=== PATIENT | male | born 2005 | race African-American/Black ===

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

== ENCOUNTER 2025-07-23 20:57 | Emergency (ER) | payer MEDICAID ==
[~2025-07-23] VITALS: Ht 175.3 cm; Wt 61.4 kg
[~2025-07-23 20:57] MED LIST changes: +IBUP-1455 MT; -IBUP-2029 MT
[2025-07-23 21:07] VITALS: O2SAT 100
[2025-07-23 22:41] VITALS: BP 99/59; PULSE 62; RESP 18; TEMP 36.8; O2SAT 100
[2025-07-23] MEDS: ACETAMINOPHEN 325MG TABLET PO ONE (22:44)
== END 2025-07-23 22:45 | disposition home or self-care (01) ==
LOC: ER 20:57
DX: M79.642 Pain in left hand (principal); F12.90 Cannabis use, unspecified, uncomplicated; Z79.899 Other long term (current) drug therapy; X58.XXXA Exposure to other specified factors, initial encounter; Y93.89 Activity, other specified; Y92.89 Other specified places as the place of occurrence of the external cause; Y99.8 Other external cause status
CPT/HCPCS: 29125; 73130; 99283